=== PATIENT | male | born 1965 | race Caucasian/White ===

== ENCOUNTER → 2025-01-19 14:39 | Outpatient (BNVA) | payer MEDICAID, SELFPAY | PROVIDERS: Visit Provider Orthopaedic Surgery | DX: M19.012 Primary osteoarthritis, left shoulder (principal) | CPT/HCPCS: 73030 ==

== ENCOUNTER 2025-01-20 10:48 | Outpatient (CLI) | payer OTHER, SELFPAY ==
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
== END 2025-01-20 10:49 | disposition home or self-care (01) ==
LOC: RAD 10:54
PROVIDERS: PCP Nurse Practitioner; Visit Provider Family Medicine
DX: Z02.71 Encounter for disability determination (principal); R93.6 Abnormal findings on diagnostic imaging of limbs; M19.072 Primary osteoarthritis, left ankle and foot; M77.32 Calcaneal spur, left foot
CPT/HCPCS: 73600; 73620